=== PATIENT | male | born 1965 | race Caucasian/White ===

== ENCOUNTER 2019-10-30 05:50 | Emergency (ER) | payer OTHER ==
[~2019-10-30] VITALS: Ht 188 cm; Wt 108.9 kg
[~2019-10-30 05:50] MED LIST: TOPROL XL25 MG PO; [UNRECOGNIZED DRUG - REMARK]
[2019-10-30] MEDS ORDERED: ASA81BEC PO (06:01)
[2019-10-30 06:47] LABS: ABSOLUTE BASOPHILS 0.1 thou/uL (0.0-0.2); ABSOLUTE EOSINOPHILS 0.2 thou/uL (0.0-0.7); ABSOLUTE LYMPHOCYTES 1.7 thou/uL (0.8-5.3); ABSOLUTE MONOCYTES 0.5 thou/uL (0.0-1.2); ABSOLUTE NEUTROPHILS 4.1 thou/uL (1.6-8.1); BASOPHILS 0.9 %; EOSINOPHILS 2.4 %; HEMATOCRIT 43.6 % (42.0-52.0); HEMOGLOBIN 15.4 gm/dL (14.0-18.0); LYMPHOCYTES 26.2 %; MCH 33.2 pg (26.0-34.0); MCHC 35.4 g/dL (28.0-37.0); MCV 93.6 fL (80.0-100.0); MONOCYTES 7.7 %; MPV 8.7 fl. (7.2-11.1); NUCLEATED RBCS 0 /100WBC; PLATELET COUNT* 163 thou/uL (150-400); POLYS 62.8 %; RBC 4.66 mil/uL (4.50-6.00); RDW-CV 13.3 % (10.5-14.5); WBC 6.5 thou/uL (4.0-11.0)
[2019-10-30 06:57] LABS: CALCIUM 9.2 mg/dL (8.5-10.1); CREATININE 1.1 mg/dL (0.6-1.3); POTASSIUM 3.6 mmol/L (3.5-5.1)
[2019-10-30 06:59] LABS: PROTIME 10.6 Seconds (9.20-11.50)
[2019-10-30 07:07] LABS: ALBUMIN 3.4 g/dL (3.4-5.0); TOTAL BILIRUBIN 0.7 mg/dL (<0.1-1.0); TOTAL PROTEIN 7.3 g/dL (6.4-8.2)
--- NOTE | 2019-10-30 10:09 | EKG ---
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
--- NOTE | 2019-10-30 15:20 | EXE ---
[place] [address] STRESS ECHOCARDIOGRAM Name: ESTEVAN SALINAS Room: [facility]#: [id number] Admission: 10/30/19 Attend Phys: Discharge: Date of : 67 Date of Service: 10/30/19 1520 Report #: [id number] THIS REPORT FOR: cc: Tato Carmen Gregg R. DO Blick, David R. MD [facility] ~ APPROVED REPORT Study performed: 10/30/2019 13:22:49 Exam: Stress Echocardiogram Indication: Chest pain , Edema Patient Location: In-Patient Room #: Ht: 6 ft 2 in HR: 72 bpm BP: 144/97 mmHg Medical History Cardiac Risk Factors: HTN, Age, FHX of CAD Procedure The patient underwent an Exercise Stress Test using the Prasanna Protocol. Blood pressure, heart rate, and EKG were monitored. An Echocardiogram was performed by electrical instrument technician in four stages in quad fashion. At peak stress, four selected images were obtained and placed side by side with resting images for comparison. Stress Test Details Stress Test: Exercise stress testing was performed using a Prasanna protocol. HR Resting HR: 72 bpm Max Heart Rate (APMHR): 167 bpm Max HR Achieved: 169 bpm Target HR (85% APMHR): 141 bpm % of APMHR: 101 Recovery HR: 101 bpm HR response to stress: Normal HR response to stress BP Resting BP: 144/97 mmHg Max BP: 205/97 mmHg Recovery BP: 130/83 mmHg BP response to stress: Normal blood pressure [place] [address] STRESS ECHOCARDIOGRAM Name: ESTEVAN SALINAS Room: [facility]#: [id number] Admission: 10/30/19 Attend Phys: Discharge: Date of : 67 Date of Service: 10/30/19 1520 Report #: [id number] Resting ECG: Sinus Rhythm Stress ECG: Sinus Rhythm, nonspecific ST-T abnormalities ST Change: Upsloping ST depression Maximum ST Deviation: 1 mm Arrhythmia: VPC's Recovery ECG: Sinus Rhythm, nonspecific ST-T abnormalities Recovery ST Change: Upsloping ST depression Recovery ST Deviation: 0.5 mm Recovery Arrhythmia: VPC Clinical Reason for Termination: Completed protocol Stress Symptoms: Chest pressure. before , during and post Exercise duration: 6 min 37 sec Highest Stage Achieved: Stage 3: 3.4 mph at 14% grade. Exercise capacity: 7.92 METs Pre-Stress Echo The resting Echocardiogram showed normal left ventricular contractility with an estimated Ejection Fraction of about 55-60%. Post-Stress Echo The stress Echocardiogram showed normal left ventricular contractility with an estimated Ejection Fraction of about 65-70%. Compared to rest, there were no stress-induced wall motion abnormalities. Conclusion Clinical Response: Equivocal Exercise Capacity: Average Stress ECG Response: Indeterminant Stress Echo Images: Non-ischemic low risk stress echo for predicting future cardiac events Other Information Study Quality: Fair <Conclusion> low risk stress echo for predicting future cardiac events <ELECTRONICALLY SIGNED> By: Chriss Morgan MD, [facility] 10/30/19 1520 1520 1520 Chriss Morgan MD, FAC /INF
[2019-10-30 15:44] VITALS: BP 138/78
== END 2019-10-30 15:47 | disposition home or self-care (01) ==
LOC: M.ERS 05:50
PROVIDERS: Emergency Medicine
DX: R07.89 Other chest pain (principal)